=== PATIENT | male | born 2000 | race Native Hawaiian/Other Pacific Islander ===

== ENCOUNTER 2022-07-06 18:29 | Emergency (ER) | payer OTHER ==
[~2022-07-06] VITALS: Ht 172.7 cm; Wt 102.3 kg
[2022-07-06] MEDS ORDERED: morphine 4 MG/ML inj SYRINge IM ONE (20:20)
[2022-07-06] MEDS ORDERED: ketorolac trometh. 30mg/ml inj. IM ONE (20:20)
[2022-07-06] MEDS ORDERED: HYDROcodone/acetaminophen 10/325mg tab PO ONE (20:20)
[2022-07-06] MEDS ORDERED: HYDR-3973 PO (21:04)
[2022-07-06 21:26] VITALS: BP 110/78
== END 2022-07-06 21:28 | disposition home or self-care (01) ==
LOC: ER 18:30
DX: S82.401A Unspecified fracture of shaft of right fibula, initial encounter for closed fracture (principal); F17.200 Nicotine dependence, unspecified, uncomplicated; X58.XXXA Exposure to other specified factors, initial encounter; Y93.89 Activity, other specified; Y92.89 Other specified places as the place of occurrence of the external cause; Y99.8 Other external cause status
CPT/HCPCS: 29515; 73610; 96372; 99284; J1885; J2270; A6446; A6449